=== PATIENT | male | born 1990 | race Two or more races ===

== ENCOUNTER 2018-12-11 06:00 | Inpatient (IN) | payer OTHER ==
[~2018-12-11] VITALS: Ht 172.7 cm; Wt 193.0 kg
[2018-12-11] MEDS ORDERED: ceFAZolin 1GM/50ML 50 ML IV ONE (07:29)
[2018-12-11] MEDS ORDERED: MIDAZOLAM HCL 1MG/1ML-2 ML VIAL ONE (09:38)
[2018-12-11] MEDS ORDERED: ROCURONIUM 10MG/ML 10ML VIAL IV ONE (09:39)
[2018-12-11] MEDS ORDERED: METOCLOPRAMIDE HCL 5MG/ml INJ 2ml VIAL IV ONE (10:05)
[2018-12-11] MEDS ORDERED: GELATIN 1 SPONGE SIZE 100 TOP ONE (10:06)
[2018-12-11] MEDS ORDERED: BUPIVACAINE 0.25% INJ 50ML VIAL ONE (10:06)
[2018-12-11] MEDS ORDERED: LIDOCAINE 2% JELLY 11ml (GLYDO) ONE (10:06)
[2018-12-11] MEDS ORDERED: LIDOCAINE 1% (LOCAL ANESTH.) PF 5ml SDV ONE (10:07)
[2018-12-11] MEDS ORDERED: SUCCINYLCHOLINE CHLORIDE 20 MG/ML 10ML VIAL IV ONE (10:07)
[2018-12-11] MEDS ORDERED: PROPOFOL 10 MG/ML 20 ML IV ONE (10:19)
[2018-12-11] MEDS ORDERED: fentaNYL CITRATE 100 MCG/2 ML VL ONE (10:34)
[2018-12-11] MEDS ORDERED: HYDROmorphone HCL 2 MG/ML VL IV PRN ×2 (10:45)
[2018-12-11] MEDS ORDERED: NALOXONE HCL 0.4 MG/ML VIAL IV PRN (10:45)
[2018-12-11] MEDS ORDERED: ONDANSETRON HCL 4 MG/2 ML VIAL IV PRN ×2 (10:45→13:45)
[2018-12-11] MEDS ORDERED: NEOSTIGMINE 1 MG/ML INJ (10mg/10ML VIAL) ONE (10:50)
[2018-12-11] MEDS ORDERED: GLYCOPYRROLATE 0.2 MG/ML 1ML VIAL ONE (10:50)
[2018-12-11] MEDS ORDERED: ACETAMINOPHEN/CODEINE#3 (300/30mg) TAB PO PRN (11:15)
[2018-12-11 14:30] VITALS: BP 108/68
--- NOTE | 2018-12-11 14:30 | NUR ---
MS admit from [facility] admitted to tele/MS after SBAR received. Patient oriented to JANINA STRICKLAND, RN primary RN, unit, room, bed, and unit policies regarding patient care and visiting hours. Patient ambulated to bathroom with this RN and STAVE CUTTING SUPERVISOR at bedside. When patient returned, his incision was bleeding. 4x4 gauze was placed in between buttock. Dr. Aldridge wants incision to be open to air per STAVE CUTTING SUPERVISOR. Patient weighed by bedscale and encouraged to call if they need something. All questions and concerns addressed, patient verbalized understanding. Guards at bedside.
[2018-12-11] MEDS: SODIUM CHLORIDE 0.9% 1,000 ML IV SCH ×2 (15:08→21:13)
[2018-12-11 15:59] VITALS: BP 108/68
[2018-12-11] MEDS: ceFAZolin 1GM/50ML 50 ML IV SCH ×2 (16:00→21:13)
--- NOTE | 2018-12-11 18:48 | NUR ---
Closing Shift Note Patient resting in bed. No distress noted. No additional bleeding noted. Patient does not complain of pain. Guards at bedside.
--- NOTE | 2018-12-11 20:10 | NUR ---
RECEIVED PATIENT IN BED, AAOX4. NO DISTRESS NOTED. INTRODUCED MYSELF TO THE PATIENT. ORIENTATION DONE. AFEBRILE. NO SOB NOTED. OFFICERS ARE IN THE ROOM. DRESSING NOTED ON THE RIGHT BUTTOCK. POCS DISCUSSED WITH PATIENT AND SHOWED UNDERSTANDING. BED KEPT ON LOWEST POSITION. SIDE RAILS UP. CALL LIGHT/TABLE IN REACH. KEPT COMFORTABLE.
[2018-12-11] MEDS: HYDROmorphone HCL 2 MG/ML VL IV PRN (21:13)
[2018-12-11 22:00] VITALS: BP 105/67
[2018-12-12 05:50] VITALS: BP 110/60
[2018-12-12] MEDS: ceFAZolin 1GM/50ML 50 ML IV SCH ×3 (06:00→22:37)
--- NOTE | 2018-12-12 06:15 | NUR ---
ON BED, ASLEEP. NO DISTRESS NOTED. FOR MORE CARE AND MANAGEMENT.
[2018-12-12 06:23] LABS: Basophils # (auto) 0 uL; Basophils % (auto) 0.4 % (0.0-2.0); Eosinophils # (auto) 0.1 uL; Eosinophils % (auto) 1.2 % (0.0-7.0); Hematocrit 39.3 % (41.0-53.0); Hemoglobin 13.2 g/dL (13.5-17.5); Lymphocytes # (auto) 3.3 uL; Lymphocytes % (auto) 39.8 % (10.0-50.0); Mean Corpuscular Hemoglobin 30.3 pg (28.0-32.0); Mean Corpuscular Hgb Conc. 33.6 g/dL (32.0-36.0); Mean Corpuscular Volume 90.1 fL (80.0-100.0); Monocytes # (auto) 0.6 uL; Monocytes % (auto) 7.8 % (0.0-12.0); Neutrophils # (auto) 4.2 uL; Neutrophils % (auto) 50.8 % (37.0-80.0); Nucleated Red Blood Cells % 0.1 %; Platelet Count (auto) 257 10^3/uL (140-450); Red Blood Cells 4.36 10^6/uL (4.5-5.90); Red Cell Distribution Width 14.3 % (11.8-14.3); White Blood Cell 8.2 10^3/uL (4.4-10.8)
[2018-12-12 06:44] LABS: BUN/Creatinine Ratio 10.1; Calcium 8.7 mg/dL (8.5-10.1); Potassium 3.7 mmol/L (3.5-5.1)
[2018-12-12 08:04] VITALS: BP 107/66
--- NOTE | 2018-12-12 08:04 | NUR ---
Opening Shift Note Assumed care of patient, awake and alert. No S/S of distress/SOB. Patient reports 8/10 pain in his right buttocks. Patient will be medicated for pain per MD order. Instructed on POC and to call for assist PRN, will continue to monitor for changes Q1hr and PRN.
--- NOTE | 2018-12-12 08:05 | NUR ---
Wound Replaced gauze around wound area. Still open to air. No active bleeding. No distress noted.
[2018-12-12 09:00] VITALS: BP 107/66
[2018-12-12] MEDS: HYDROmorphone HCL 2 MG/ML VL IV PRN (09:27)
--- NOTE | 2018-12-12 11:45 | NUR ---
Page to Dr. Aldridge Page to Dr. Aldridge regarding patient's order for sitz bath dated for yesterday. Awaiting callback.
[2018-12-12] MEDS ORDERED: DOCUSATE SOD 100 MG CAP PO ONE (12:15)
[2018-12-12 13:00] VITALS: BP 107/61
[2018-12-12] MEDS ORDERED: PROPOFOL 10 MG/ML 20 ML IV ONE (16:42)
[2018-12-12] MEDS ORDERED: ROCURONIUM 10MG/ML 10ML VIAL IV ONE (16:42)
[2018-12-12] MEDS ORDERED: METOCLOPRAMIDE HCL 5MG/ml INJ 2ml VIAL IV ONE (16:42)
[2018-12-12] MEDS ORDERED: SUCCINYLCHOLINE CHLORIDE 20 MG/ML 10ML VIAL IV ONE (16:42)
[2018-12-12 17:00] VITALS: BP 100/51
[2018-12-12] MEDS: SODIUM CHLORIDE 0.9% 1,000 ML IV SCH (17:17)
--- NOTE | 2018-12-12 19:05 | NUR ---
Closing Shift Note Patient resting in bed. No distress noted. No additional bleeding noted. Patient does not complain of pain. Guards at bedside.
--- NOTE | 2018-12-12 19:25 | NUR ---
Opening Shift Note Report received from day shift RN. Assumed care of patient. Patient awake laying in bed and alert x4. No S/S of distress/SOB noted and denies pain at this time. Patient is a prisoner and has 2 guards at beside. Instructed on POC and to call for assist PRN. Call light left within reach. Will continue to monitor for changes Q1hr and PRN.
--- NOTE | 2018-12-12 20:00 | NUR ---
Gauzes placed between buttocks saturated with serosanguineous fluid. Old gauze removed, site cleansed, and sterile gauzes placed. Will continue to monitor.
[2018-12-12] MEDS: DOCUSATE SOD 100 MG CAP PO SCH (22:37)
[2018-12-12 23:55] VITALS: BP 94/56
[2018-12-13 05:31] VITALS: BP 101/62
[2018-12-13] MEDS: SODIUM CHLORIDE 0.9% 1,000 ML IV SCH (05:46)
[2018-12-13] MEDS: ceFAZolin 1GM/50ML 50 ML IV SCH (05:46)
--- NOTE | 2018-12-13 08:00 | NUR ---
RECEIVED PATIENT ALERT AND ORIENTED X4, NOT IN DISTRESS, CLEAR LS IN BILATERAL LUNG LOBES, RR=18 ST=94% IN RA, HEART R=68, DENIED CHEST PAIN OR SOB, ABDOMEN SOFT AND ROUND WITH ACTIVE BS, LAST BM=12/11/18 REPORTED, RT ANAL SURGICAL SUTURE OOZING SEROSANGUINEOUS, CLEANED AND CHANGED DRESSING, TOLERATED WELL,GENERAL SKIN INTACT WARM TO TOUCH, RADIAL AND PEDAL PULSES PALPABLE, CAP REFILL <3 SECONDS, RESTING ON BED, HEAD OF BED ELEVATED, BED ON LOWER POSITION RAILS UP X2, CALL LIGHT ON REACH, GUARDS AT BED SIDE, WILL CONTINUE MONITORING.
[2018-12-13 08:30] VITALS: BP 120/58
[2018-12-13 09:00] VITALS: BP 80/59
[2018-12-13] MEDS: DOCUSATE SOD 100 MG CAP PO SCH (09:32)
--- NOTE | 2018-12-13 12:00 | NUR ---
WOUND DRESSING WAS CHANGED, TOLERATED WELL,NOT IN DISTRESS, DENIED PAIN, PENDING D/C.
[2018-12-13 13:00] VITALS: BP 120/54
--- NOTE | 2018-12-13 15:50 | NUR ---
D/C INSTRUCTIONS WERE GIVEN, VERBALIZED UNDERSTANDING, MEDICATION PRESCRIPTIONS EDUCATION PROVIDED, VERBALIZED UNDERSTANDING, WOUND EVALUATION PICTURES TAKEN, WOUND DRESSING WAS CHANGED ORDERED, WOUND CARE EDUCATION PROVIDED, VERBALIZED UNDERSTANDING AND TOLERATED WELL, D/C IV SITE TOLERATED WELL, NOT IN DISTRESS, DENIED PAIN, VS T=97.7 RR=18 SA=94% P=70 PC=543/60, D/C ON WC ACCOMPANIED BY GUARDS, TOOK ALL BELONGINGS AND LEFT NOTING BEHIND.
== END 2018-12-13 18:50 | DRG 394 ==
LOC: SUR 06:00 → EEVIPCON 06:00 → WEST WING 14:59
PROVIDERS: ADMIT Surgery; ATTEND Internal Medicine
PROC: 3E0H3GC Introduction of Other Therapeutic Substance into Lower GI, Percutaneous Approach (ICD-10-PCS; 2018-12-11)
PROC: 0HB9XZZ Excision of Perineum Skin, External Approach (ICD-10-PCS; principal; 2018-12-11 10:07)
DX: K60.3 Anal fistula (principal); Z68.44 Body mass index [BMI] 60.0-69.9, adult; E66.9 Obesity, unspecified; K59.00 Constipation, unspecified; K21.9 Gastro-esophageal reflux disease without esophagitis
CPT/HCPCS: 36415; 80048; 85025; G0378; J0330; J0690; J2250; J2704; J3490